=== PATIENT | female | born 1990 | race American Indian/Alaskan Native ===

== ENCOUNTER 2018-02-05 05:25 | Emergency (ER) | payer OTHER ==
[2018-02-05 05:48] LABS: Basophils % (Auto) 0.5 % (0.0-1.8); Eosinophils # (Auto) 0.1 K/mm3 (0.0-0.4); Eosinophils % (Auto) 1.8 % (0.0-4.3); Hematocrit 36.4 % (30.3-42.9); Hemoglobin 12.1 gm/dl (10.1-14.3); Lymphocytes # (Auto) 3.1 K/mm3 (1.2-5.4); Lymphocytes % (Auto) 40.7 % (13.4-35.0); Mean Corpuscular HGB Conc 33 % (30-34); Mean Corpuscular Hemoglobin 27 pg (28-32); Mean Corpuscular Volume 81 fl (79-97); Monocytes # (Auto) 0.5 K/mm3 (0.0-0.8); Monocytes % (Auto) 6.4 % (0.0-7.3); Platelet Count 320 K/mm3 (140-440); Red Blood Count 4.48 M/mm3 (3.65-5.03)
[2018-02-05 06:22] LABS: Bilirubin,Urine NEG (Negative); Blood,Urine MOD (Negative); Color,Urine Yellow (Yellow); Mucus,Urine FEW /HPF; Protein,Urine <15 mg/dL mg/dL (Negative); Urobilinogen,Urine < 2.0 mg/dL (<2.0); WBC,Urine < 1.0 /HPF (0.0-6.0)
[2018-02-05 06:32] VITALS: BP 119/69
--- NOTE | 2018-02-05 07:25 | Ultrasound Report ---
FINAL REPORT EXAM: US OB TRANSVAGINAL HISTORY: vaginal bleeding COMPARISONS: None. FINDINGS: Transvaginal 1st trimester ultrasound utilizing grayscale, color Doppler and M-mode technique Anteverted uterus. Gestational sac with chorion and possible pole. No cardiac activity is detected. Mean sac diameter is approximately 28 millimeters. Potential crown-rump length of 6 millimeters. No perigestational hemorrhage. Probable right ovarian corpus luteal cyst measures up to 2.3 cm. The ovaries are otherwise unremarkable and measure 4.5 x 1.8 x 2.1 cm on the right and 3.9 x 1.6 x 2.1 cm on the left. No significant free fluid in the pelvis. IMPRESSION: Gestational sac with chorion and possible 6 millimeter pole. No cardiac activity is detected. Failed 1st trimester / demise is most likely, although early and otherwise normal first-trimester is still possible. Close interval clinical and sonographic follow-up are suggested.
--- NOTE | 2018-02-05 07:27 | Ultrasound Report ---
FINAL REPORT EXAM: US OB < = 14 WEEKS FETUS HISTORY: veginal bleeding COMPARISONS: None. FINDINGS: Transabdominal 1st trimester ultrasound utilizing grayscale, color Doppler and M-mode technique Anteverted uterus. Gestational sac with chorion and possible pole. No cardiac activity is detected. Mean sac diameter is approximately 28 millimeters. Potential crown-rump length of 6 millimeters. No perigestational hemorrhage. Probable right ovarian corpus luteal cyst measures up to 2.3 cm. The ovaries are otherwise unremarkable and measure 4.5 x 1.8 x 2.1 cm on the right and 3.9 x 1.6 x 2.1 cm on the left. No significant free fluid in the pelvis. IMPRESSION: Gestational sac with chorion and possible 6 millimeter pole. No cardiac activity is detected. Failed 1st trimester / demise is most likely, although early and otherwise normal first-trimester is still possible. Close interval clinical and sonographic follow-up are suggested.
--- NOTE | 2018-02-05 08:07 | Emergency Department Report ---
HPI - General Chief Complaint: Vaginal Bleeding Time Seen by Provider: 02/05/18 07:48 - HPI HPI: Room 26 The patient is a 27-year-old female presenting with a chief complaint of vaginal spotting. The patient states she is approximately 10 weeks and this morning at 03:00 after having sexual intercourse she developed some vaginal spotting. Patient denied pain of any type. Patient denies fever or dysuria. The patient states she recently moved to [place] for her last ultrasound occurred in [place] when she was 7 weeks gestational age. No abnormalities were reported at that time Location: Genitourinary system Duration: [See above] Quality: Painless Severity: Mild Modifying factors: [see above] Context: [see above] Mode of transportation: [not driving] ED Past Medical Hx - Past Medical History Previous Medical History?: No - Surgical History Past Surgical History?: No - Family History Family history: no significant - Social History Smoking Status: Never Smoker Substance Use Type: None (denies illicit drug use) ED Review of Systems ROS: Stated complaint: VAGINAL BLEEDING Other details as noted in HPI Constitutional: no symptoms reported Eyes: denies: eye pain ENT: denies: throat pain Cardiovascular: denies: chest pain Gastrointestinal: denies: abdominal pain Genitourinary: abnormal menses Musculoskeletal: denies: back pain Neurological: denies: headache Physical Exam - Physical Exam Vital Signs: Vital Signs 02/05/18 02/05/18 02/05/18 05:22 05:27 06:05 Temperature 98.4 F 98.4 F Pulse Rate 95 H 95 H Respiratory 18 18 16 Rate Blood Pressure 143/83 143/83 Blood Pressure [Left] O2 Sat by Pulse 99 99 99 Oximetry 02/05/18 06:15 Temperature 98.3 F Pulse Rate 93 H Respiratory 16 Rate Blood Pressure Blood Pressure 119/69 [Left] O2 Sat by Pulse 100 Oximetry Physical Exam: GENERAL: The patient is well-developed well-nourished female lying on stretcher not appear to be in acute distress. [] HEENT: Normocephalic. Atraumatic. Extraocular motions are intact. Patient has moist mucous membranes. NECK: Supple. Trachea midline CHEST/LUNGS: Clear to auscultation. There is no respiratory distress noted. HEART/CARDIOVASCULAR: Regular. There is no tachycardia. There is no gallop rub or murmur. ABDOMEN: Abdomen is soft, nontender. Patient has normal bowel sounds. There is no abdominal distention. SKIN: There is no rash. There is no edema. There is no diaphoresis. NEURO: The patient is awake, alert, and oriented. The patient is cooperative. The patient has normal speech MUSCULOSKELETAL: There is no evidence of acute injury. ED Course Vital Signs 02/05/18 02/05/18 02/05/18 05:22 05:27 06:05 Temperature 98.4 F 98.4 F Pulse Rate 95 H 95 H Respiratory 18 18 16 Rate Blood Pressure 143/83 143/83 Blood Pressure [Left] O2 Sat by Pulse 99 99 99 Oximetry 02/05/18 06:15 Temperature 98.3 F Pulse Rate 93 H Respiratory 16 Rate Blood Pressure Blood Pressure 119/69 [Left] O2 Sat by Pulse 100 Oximetry ED Medical Decision Making - Lab Data Result diagrams: 02/05/18 05:36 Laboratory Tests 02/05/18 02/05/18 02/05/18 05:30 05:36 05:36 WBC 7.6 RBC 4.48 Hgb 12.1 Hct 36.4 MCV 81 MCH 27 L MCHC 33 RDW 15.0 Plt Count 320 Lymph % (Auto) 40.7 H [place] % (Auto) 6.4 Eos % (Auto) 1.8 Baso % (Auto) 0.5 Lymph # 3.1 [place] # 0.5 Eos # 0.1 Baso # 0.0 Seg Neutrophils % 50.6 Seg Neutrophils # 3.8 HCG, Quant 6962 H Urine Color Urine Turbidity Urine pH Ur Specific [place] Urine Protein Urine Glucose (UA) Urine Ketones Urine Blood Urine Nitrite Urine Bilirubin Urine Urobilinogen Ur Leukocyte Esterase Urine WBC (Auto) Urine RBC (Auto) U Epithel Cells (Auto) Urine Mucus Blood Type O POSITIVE Antibody Screen Negative 02/05/18 05:58 WBC RBC Hgb Hct MCV MCH MCHC RDW Plt Count Lymph % (Auto) [place] % (Auto) Eos % (Auto) Baso % (Auto) Lymph # [place] # Eos # Baso # Seg Neutrophils % Seg Neutrophils # HCG, Quant Urine Color Yellow Urine Turbidity Clear Urine pH 5.0 Ur Specific [place] 1.010 Urine Protein <15 mg/dl Urine Glucose (UA) Neg Urine Ketones Neg Urine Blood Mod Urine Nitrite Neg Urine Bilirubin Neg Urine Urobilinogen < 2.0 Ur Leukocyte Esterase Neg Urine WBC (Auto) < 1.0 Urine RBC (Auto) 2.0 U Epithel Cells (Auto) 1.0 Urine Mucus Few Blood Type Antibody Screen - Radiology Data Radiology results: report reviewed (pelvic ultrasound), image reviewed (pelvic ultrasound) [facility] [address] [place] [address] Ultrasound Report Signed Patient: SUSHIL OSEGUERA MR#: [id number] : 1990 Acct:[id number] Age/Sex: 27 / F ADM Date: 02/05/18 Loc: ED Attending Dr: Ordering Physician: MASOOD CHAVARRIA MD Date of Service: 02/05/18 Procedure(s): US OB transvaginal Accession Number(s): [id number] cc: ED MD DEON FINAL REPORT EXAM: US OB TRANSVAGINAL HISTORY: vaginal bleeding COMPARISONS: None. FINDINGS: Transvaginal 1st trimester ultrasound utilizing grayscale, color Doppler and M-mode technique Anteverted uterus. Gestational sac with chorion and possible pole. No cardiac activity is detected. Mean sac diameter is approximately 28 millimeters. Potential crown-rump length of 6 millimeters. No perigestational hemorrhage. Probable right ovarian corpus luteal cyst measures up to 2.3 cm. The ovaries are otherwise unremarkable and measure 4.5 x 1.8 x 2.1 cm on the right and 3.9 x 1.6 x 2.1 cm on the left. No significant free fluid in the pelvis. IMPRESSION: Gestational sac with chorion and possible 6 millimeter pole. No cardiac activity is detected. Failed 1st trimester / demise is most likely, although early and otherwise normal first-trimester is still possible. Close interval clinical and sonographic follow-up are suggested. Transcribed By: ROBERTO Dictated By: RAMON RIDER MD Electronically Authenticated By: RAMON RIDER MD Signed Date/Time: 02/05/18720 DD/ 0 TD/TT: 02/05/18720 - Medical Decision Making The pelvic ultrasound reveals no cardiac activity being detected. Radiologist believes a failed first trimester / demise is most likely although early and otherwise normal first trimester is still possible. Subsequently I will not give diagnosis of demise. Patient will be diagnosed with threatened until further evaluated by GENERAL STORE MANAGER. Patient advised to undergo bedrest and pelvic rest until cleared by an GENERAL STORE MANAGER Critical care attestation.: If time is entered above; I have spent that time in minutes in the direct care of this critically ill patient, excluding procedure time. ED Disposition Clinical Impression: Threatened Disposition: TO HOME OR SELFCARE Is pt being admited?: No Does the pt Need Aspirin: No Condition: Stable Instructions: Threatened Miscarriage (ED) Additional Instructions: Return to the emergency department immediately should you develop worsening symptoms, fever, inability to tolerate food or liquid or any other concerns. Referrals: your, GENERAL STORE MANAGER [Other] - 3-5 Days [facility] [Outside] - [facility] () Time of Disposition: 08:15
== END 2018-02-05 08:27 | disposition home or self-care (01) ==
LOC: ED 05:25
DX: O20.0 Threatened abortion (principal); Z3A.10 10 weeks gestation of pregnancy
CPT/HCPCS: 36415; 76801; 76817; 81001; 84702; 85025; 86850; 86900; 86901; 99284

== ENCOUNTER 2018-02-07 00:07 | Emergency (ER) | payer SELFPAY ==
[2018-02-07 00:52] LABS: Basophils % (Auto) 0.2 % (0.0-1.8); Eosinophils # (Auto) 0.2 K/mm3 (0.0-0.4); Eosinophils % (Auto) 1.9 % (0.0-4.3); Hematocrit 34.4 % (30.3-42.9); Hemoglobin 11.8 gm/dl (10.1-14.3); Lymphocytes # (Auto) 3.2 K/mm3 (1.2-5.4); Lymphocytes % (Auto) 35.7 % (13.4-35.0); Mean Corpuscular HGB Conc 34 % (30-34); Mean Corpuscular Hemoglobin 28 pg (28-32); Mean Corpuscular Volume 82 fl (79-97); Monocytes # (Auto) 0.5 K/mm3 (0.0-0.8); Monocytes % (Auto) 5.3 % (0.0-7.3); Platelet Count 310 K/mm3 (140-440); Red Cell Distribution Width 15.1 % (13.2-15.2)
[2018-02-07 00:58] LABS: Alanine Aminotransferase 11 units/L (7-56); Albumin 4.3 g/dL (3.9-5); BUN/Creatinine Ratio 16; Blood Urea Nitrogen 8 mg/dL (7-17); Calcium 9.5 mg/dL (8.4-10.2); Hemolysis Index 3
[2018-02-07 01:04] LABS: Bilirubin,Urine NEG (Negative); Blood,Urine MOD (Negative); Color,Urine Red (Yellow); Urobilinogen,Urine < 2.0 mg/dL (<2.0)
[2018-02-07 01:05] LABS: RBC,Urine > 182.0 /HPF (0.0-6.0)
--- NOTE | 2018-02-07 01:38 | Emergency Department Report ---
HPI - General Chief Complaint: Vaginal Bleeding Time Seen by Provider: 02/07/18 01:25 - [facility] HPI: Room 8 The patient is a 27-year-old female presenting with a chief complaint of vaginal bleeding. The patient was seen by myself 2 days ago for lower abdominal pain and vaginal bleeding and had a pelvic ultrasound performed which was concerning for demise. The patient states she scheduled an appointment with an CELLAR WORKER but has not yet followed up. Today the patient states she started having heavy vaginal bleeding passing large blood clots and again began having cramping in the lower abdomen. Patient does not recall seen tissue being passed Location: Pelvis Duration: One day Quality: Cramping Severity: Moderate Modifying factors: [see above] Context: [see above] Mode of transportation: [not driving] ED Past Medical Hx - Past Medical History Previous Medical History?: No - Surgical History Past Surgical History?: No - Family History Family history: no significant - Social History Smoking Status: Never Smoker Substance Use Type: Alcohol - Medications Home Medications: Home Medications Medication Instructions Recorded Confirmed Last Taken Type HYDROcodone/APAP 5-325 [Jonancy 1 - 2 each PO Q6HR PRN #14 tablet 02/07/18 Unknown Rx 5/325] Ibuprofen [Motrin 800 MG tab] 800 mg PO Q8HR PRN #20 tablet 02/07/18 Unknown Rx ED Review of Systems ROS: Stated complaint: VAGINAL BLEEDING Other details as noted in HPI Constitutional: no symptoms reported Eyes: denies: eye pain ENT: denies: throat pain Cardiovascular: denies: chest pain Gastrointestinal: abdominal pain Genitourinary: abnormal menses Musculoskeletal: denies: back pain Neurological: denies: headache Physical Exam - Physical Exam Vital Signs: Vital Signs 02/07/18 02/07/18 00:06 00:13 Temperature 97.9 F 97.9 F Pulse Rate 88 87 Respiratory 18 18 Rate Blood Pressure 124/69 124/69 O2 Sat by Pulse 100 100 Oximetry Physical Exam: GENERAL: The patient is well-developed well-nourished female sitting on stretcher not appearing to be in acute distress. [] HEENT: Normocephalic. Atraumatic. Extraocular motions are intact. Patient has moist mucous membranes. NECK: Supple. Trachea midline CHEST/LUNGS: Clear to auscultation. There is no respiratory distress noted. HEART/CARDIOVASCULAR: Regular. There is no tachycardia. There is no gallop rub or murmur. ABDOMEN: Abdomen is soft, with lower abdominal discomfort. Patient has normal bowel sounds. There is no abdominal distention. SKIN: There is no rash. There is no edema. There is no diaphoresis. NEURO: The patient is awake, alert, and oriented. The patient is cooperative. The patient has normal speech MUSCULOSKELETAL: There is no evidence of acute injury. PELVIC: Refused by patient ED Course Vital Signs 02/07/18 02/07/18 00:06 00:13 Temperature 97.9 F 97.9 F Pulse Rate 88 87 Respiratory 18 18 Rate Blood Pressure 124/69 124/69 O2 Sat by Pulse 100 100 Oximetry - Consultations Consultation #1: 02/07/18 03:16 CELLAR WORKER paged 02/07/18 03:[address] Yina Link- states the patient is hemodynamically stable she can have a D&C as an outpatient. Recommends patient apply for emergency Medicaid. Would not recommend Methergine or any other medication at this time ED Medical Decision Making - Lab Data Result diagrams: 02/07/18 00:23 02/07/18 00:23 Laboratory Tests 02/07/18 02/07/18 02/07/18 00:05 00:23 00:23 WBC 8.9 RBC 4.20 Hgb 11.8 Hct 34.4 MCV 82 MCH 28 MCHC 34 RDW 15.1 Plt Count 310 Lymph % (Auto) 35.7 H [place] % (Auto) 5.3 Eos % (Auto) 1.9 Baso % (Auto) 0.2 Lymph # 3.2 [place] # 0.5 Eos # 0.2 Baso # 0.0 Seg Neutrophils % 56.9 Seg Neutrophils # 5.1 Sodium 132 L Potassium 3.8 Chloride 96.3 L Carbon Dioxide 26 Anion Gap 14 BUN 8 Creatinine 0.5 L Estimated GFR > 60 BUN/Creatinine Ratio 16 Glucose 101 H Calcium 9.5 Total Bilirubin < 0.20 AST 13 ALT 11 Alkaline Phosphatase 68 Total Protein 7.4 Albumin 4.3 Albumin/Globulin Ratio 1.4 HCG, Qual HCG, Quant 4235 H Urine Color Urine Turbidity Urine pH Ur Specific [place] Urine Protein Urine Glucose (UA) Urine Ketones Urine Blood Urine Nitrite Urine Bilirubin Urine Urobilinogen Ur Leukocyte Esterase Urine WBC (Auto) Urine RBC (Auto) 02/07/18 02/07/18 00:23 Unknown WBC RBC Hgb Hct MCV MCH MCHC RDW Plt Count Lymph % (Auto) [place] % (Auto) Eos % (Auto) Baso % (Auto) Lymph # [place] # Eos # Baso # Seg Neutrophils % Seg Neutrophils # Sodium Potassium Chloride Carbon Dioxide Anion Gap BUN Creatinine Estimated GFR BUN/Creatinine Ratio Glucose Calcium Total Bilirubin AST ALT Alkaline Phosphatase Total Protein Albumin Albumin/Globulin Ratio HCG, Qual Positive HCG, Quant Urine Color Red Urine Turbidity Clear Urine pH 6.0 Ur Specific [place] 1.008 Urine Protein 30 mg/dl Urine Glucose (UA) Neg Urine Ketones Neg Urine Blood Mod Urine Nitrite Neg Urine Bilirubin Neg Urine Urobilinogen < 2.0 Ur Leukocyte Esterase Sm Urine WBC (Auto) 8.0 H Urine RBC (Auto) > 182.0 - Radiology Data Radiology results: report reviewed (pelvic ultrasound (discussed with radiologist)), image reviewed (pelvic ultrasound) [facility] [address] [place] [address] Ultrasound Report Signed Patient: SUSHIL OSEGUERA MR#: [id number] : 1990 Acct:[id number] Age/Sex: 27 / F ADM Date: 02/07/18 Loc: ED Attending Dr: Ordering Physician: MARIA A LAU MD Date of Service: 02/07/18 Procedure(s): US OB transvaginal Accession Number(s): [id number] cc: MARIA A LAU MD FINAL REPORT EXAM: US OB TRANSVAGINAL HISTORY: vaginal bleeding TECHNIQUE: Transvaginal imaging was obtained the pelvis including Doppler interrogation of the uterus. FINDINGS: The uterus is anteverted measures 9.7 cm x 5.3 cm x 6.1 cm. There is an intrauterine gestational sac in the lower uterine segment and upper cervix. Within the sac is a pole and yolk sac. The crown-rump length is 4.6 mm corresponding to a 6 week 2 day IUP. There is no demonstrable cardiac activity. There is no evidence of subchronic hemorrhage. The ovaries are appropriate size contour and echotexture. The right ovary measures 3.5 cm x 1.9 cm x 2.6 cm. The left ovary measures 2.3 cm x 1.4 cm x 2.4 cm. Free fluid is not seen. IMPRESSION: demise, 6 week 2 day IUP. The demise findings were discussed with Dr. Lau at 2:48 a.m. on 02/07/2018. Transcribed By: RB Dictated By: ELIEL FRENCH MD Electronically Authenticated By: ELIEL FRENCH MD Signed Date/Time: 02/07/18253 DD/ 3 TD/TT: 02/07/18253 - Medical Decision Making I discussed with the patient and significant other Dr. Link's recommendations. Patient advised to come to the hospital tomorrow to apply for emergency medical coverage. They verbalize understanding - Differential Diagnosis threatened , spontaneous , incomplete , demis Critical care attestation.: If time is entered above; I have spent that time in minutes in the direct care of this critically ill patient, excluding procedure time. ED Disposition Clinical Impression: demise Disposition: DC-01 TO HOME OR SELFCARE Is pt being admited?: No Does the pt Need Aspirin: No Condition: Stable Instructions: Intrauterine Demise (ED) Additional Instructions: Return to the emergency department immediately should you develop worsening symptoms, fever, inability to tolerate food or liquid or any other concerns. Prescriptions: HYDROcodone/APAP 5-325 [Jonancy 5/325] 1 - 2 each PO Q6HR PRN #14 tablet PRN Reason: Pain Ibuprofen [Motrin 800 MG tab] 800 mg PO Q8HR PRN #20 tablet PRN Reason: Pain, Moderate (4-6) Referrals: YINA LINK MD [Staff Physician] - [place] (Dr. Link is an CELLAR WORKER. Please follow up with her as soon as possible for further management) Time of Disposition: 03:52
--- NOTE | 2018-02-07 02:52 | Ultrasound Report ---
FINAL REPORT EXAM: US OB < = 14 WEEKS FETUS HISTORY: vaginal bleeding TECHNIQUE: Transabdominal imaging was obtained of the pelvis with Doppler interrogation of the uterus. FINDINGS: The uterus is anteverted measuring 9.7 cm x 5.3 cm x 6.1 cm. There is an intrauterine gestational sac in the lower uterine segment which contains a pole and yolk sac. The crown-rump length is 4.6 mm corresponding to a 6 week 2 day IUP. There is no demonstrated heart activity. A subchorionic hemorrhage is not seen. Free fluid is not identified. The ovaries are appropriate size contour and echotexture. The right ovary measures 3.5 cm x 1.9 cm x 2.6 cm. The left ovary measures 2.3 cm x 1.4 cm x 2.4 cm. IMPRESSION: demise, 6 week 2 day IUP.
--- NOTE | 2018-02-07 02:58 | Ultrasound Report ---
FINAL REPORT EXAM: US OB TRANSVAGINAL HISTORY: vaginal bleeding TECHNIQUE: Transvaginal imaging was obtained the pelvis including Doppler interrogation of the uterus. FINDINGS: The uterus is anteverted measures 9.7 cm x 5.3 cm x 6.1 cm. There is an intrauterine gestational sac in the lower uterine segment and upper cervix. Within the sac is a pole and yolk sac. The crown-rump length is 4.6 mm corresponding to a 6 week 2 day IUP. There is no demonstrable cardiac activity. There is no evidence of subchronic hemorrhage. The ovaries are appropriate size contour and echotexture. The right ovary measures 3.5 cm x 1.9 cm x 2.6 cm. The left ovary measures 2.3 cm x 1.4 cm x 2.4 cm. Free fluid is not seen. IMPRESSION: demise, 6 week 2 day IUP. The demise findings were discussed with Dr. Davison at 2:48 a.m. on 02/07/2018.
[2018-02-07] MEDS ORDERED: NORCO 5/325 PO ONE (03:49)
[2018-02-07 04:09] VITALS: BP 112/68
== END 2018-02-07 04:30 | disposition home or self-care (01) ==
LOC: ED 00:07
DX: O36.4XX0 Maternal care for intrauterine death, not applicable or unspecified (principal); Z3A.01 Less than 8 weeks gestation of pregnancy
CPT/HCPCS: 36415; 76801; 76817; 80053; 81001; 84702; 84703; 85025; 99284

== ENCOUNTER 2019-02-07 14:59 | Outpatient (CLI) | payer MEDICAID ==
[2019-02-07 15:33] VITALS: BP 117/59
[2019-02-07 16:42] LABS: Bacteria,Urine 1+ /HPF (Negative); Bilirubin,Urine NEG (Negative); Blood,Urine NEG (Negative); Color,Urine Yellow (Yellow); Mucus,Urine FEW /HPF; Protein,Urine <15 mg/dL mg/dL (Negative); Urobilinogen,Urine < 2.0 mg/dL (<2.0)
--- NOTE | 2019-02-07 19:30 | Ultrasound Report ---
ULTRASOUND BIOPHYSICAL PROFILE INDICATION / CLINICAL INFORMATION: Decreased movement. COMPARISON: None available. FINDINGS: BREATHING MOVEMENT = 2 GROSS BODY MOVEMENT = 2 TONE = 2 QUALITATIVE AMNIOTIC FLUID VOLUME = 2 TOTAL BIOPHYSICAL SCORE = 8/8 DEEPEST VERTICAL POCKET OF AMNIOTIC FLUID (cm) = 5.2 cm PRESENTATION: Cephalic. HEART RATE (beats per minute): 146 IMPRESSION: biophysical profile = 03/15 Signer Name: Mitch Casas MD Signed: 02/07/2019 7:25 PM Workstation Name: [id number]
== END 2019-02-07 18:00 | disposition home or self-care (01) ==
LOC: TRG 14:59
PROVIDERS: ATTEND Obstetrics & Gynecology
DX: O47.03 False labor before 37 completed weeks of gestation, third trimester (principal); Z3A.31 31 weeks gestation of pregnancy
CPT/HCPCS: 59025; 76819; 81001

== ENCOUNTER 2019-03-14 04:48 | Inpatient (IN) | payer MEDICAID ==
[2019-03-14] MEDS ORDERED: APRESOLINE ONE ×3 (06:23→11:43)
[2019-03-14] MEDS ORDERED: CELESTONE SOLUSPAN IM SCH (06:35)
[2019-03-14] MEDS ORDERED: CELESTONE SOLUSPAN IM ONE (06:35)
[2019-03-14] MEDS ORDERED: ZOFRAN IV PRN (06:39)
[2019-03-14] MEDS ORDERED: COLACE PO PRN (06:39)
[2019-03-14 06:55] LABS: Basophils # (Auto) 0.1 K/mm3 (0.0-0.1); Basophils % (Auto) 0.8 % (0.0-1.8); Eosinophils % (Auto) 0.6 % (0.0-4.3); Hematocrit 35.5 % (30.3-42.9); Hemoglobin 12.1 gm/dl (10.1-14.3); Lymphocytes # (Auto) 2.6 K/mm3 (1.2-5.4); Lymphocytes % (Auto) 30.6 % (13.4-35.0); Mean Corpuscular HGB Conc 34 % (30-34); Mean Corpuscular Volume 83 fl (79-97); Monocytes # (Auto) 0.6 K/mm3 (0.0-0.8); Monocytes % (Auto) 7.3 % (0.0-7.3); Red Blood Count 4.29 M/mm3 (3.65-5.03); Red Cell Distribution Width 16.2 % (13.2-15.2)
--- NOTE | 2019-03-14 06:59 | History and Physical Report ---
History of Present Illness Date of examination: 03/14/19 (pt presented to Triage with c/o severe HEART) History of present illness: EDC Confirmation: 04/08/2019 Gestational Age: 7 4/7 weeks Past History : 4 Term Births: 1 Premature Births: 0 Living Children: 1 Para: 1 Mult. Births: 0 Prev : 0 Prev. attempt? none Aborta: 2 Elect. Ab: 1 Spont. Ab: 1 Ectopics: 0 # 1 Delivery date: 07/11/2012 Weeks Gestation: 39 labor: no Delivery type: Anesthesia type: none Sex: Male weight: 6#12 # 2 Delivery date: 11/2013 Weeks Gestation: 5 Comments: EAB. D&C # 3 Delivery date: 10/2017 Weeks Gestation: 7 Comments: SAB. Exp. mgmt. Past Medical History: sickle cell trait. FOC has not yet been tested fibroid on breast-removed D&C 2013 Past Surgical History: fibroid from breast removed D&C 2013 wisdom tooth extraction Past Medical History Surgery (Non-benefits assistant): fibroid from breast removed D&C 2013 wisdom tooth extraction Abnormal PAP: negative WILLI Exposure: negative Infertility: negative Uterine Anomaly: negative Uterine Surgery (not C/S): negative Other Gynecologic Problems: negative Family Hx: mgm- HTN mother-HTN. 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 of genital herpes: no Partner hx. of genital herpes: no Rash, Viral, or Febrile illness since last LMP? no Varicella/Chicken Pox Status: Immunized TB Risk: no Genetic History Congenital Heart Defect: Mom: no Dad: no Gibson Disease: Mom: no Dad: no Thalassemia Mom: no Dad: no Neural Tube Defect Mom: no Dad: no Down's Syndrome Mom: no Dad: no Robert-Sachs Mom: no Dad: no Sickle Cell Disease/Trait Mom: no Dad: no Hemophilia Mom: no Dad: no Muscular Dystrophy Mom: no Dad: no Cystic Fibrosis Mom: no Dad: no [place] Chorea Mom: no Dad: no Mental Retardation Mom: no Dad: no Fragile X Mom: no Dad: no Other Genetic/Chromosomal Disorder Mom: no Dad: no Child w/other defect Mom: no Dad: no Enviromental Exposures Enviromental Exposures Reviewed Xray Exposure: no Medication, drug, or alcohol use since LMP: no Chemical/Other Exposure: no Exposure to Cat Liter: no Hx of Parvovirus (Fifth Disease): no Occupational Exposure to Children: teacher Comments: parvo to be drawn with IOB Active Medications (reviewed today): PLUS 27-1 MG ORAL TABLET ( VIT-FE FUMARATE-FA) 1 tablet po daily Current Allergies (reviewed today): No known allergies Past History - Obstetrical History Expected Date of Delivery: 04/08/19 Actual Gestation: 36 Week(s) 3 Day(s) : 4 Para: 1 Hx # Term Pregnancies: 1 Number of Pregnancies: 0 Spontaneous Abortions: 1 Induced : 1 Number of Living Children: 1 Medications and Allergies Allergies Allergy/AdvReac Type Severity Reaction Status Date / Time No Known Allergies Allergy Verified 02/07/19 15:14 Home Medications Medication Instructions Recorded Confirmed Last Taken Type Vit-Fe Fumar-FA [ 1 tab PO QDAY 02/07/19 03/14/19 03/13/19 08:00 History Vitamin] Active Meds: Active Medications Acetaminophen (Tylenol) 650 mg PO Q4H PRN PRN Reason: Pain MILD(1-3)/Fever >100.5/HEART Betamethasone Acet/Betameth SodPhos (Celestone Soluspan) 12 mg IM Q24H SUZETTE Stop: 03/15/19 06:36 Docusate Sodium (Colace) 100 mg PO Q12H PRN PRN Reason: Constipation Lactated Ringer's (Lactated Ringers) 1,000 mls @ 125 mls/hr IV DIRECT SUZETTE Multivitamins/Iron/Calcium ( Vitamin) 1 each PO QDAY SUZETTE Ondansetron HCl (Zofran) 4 mg IV Q6H PRN PRN Reason: Nausea And Vomiting - Vital Signs Vital signs: Vital Signs Pulse BP 79 187/112 03/14/19 05:05 03/14/19 05:05 Temp Pulse Resp BP Pulse Ox 81 167/84 03/14/19 06:40 03/14/19 06:40 - Physical Exam Breasts: Positive: deferred Cardiovascular: Regular rate, Normal S1, Normal S2 Lungs: Positive: Normal air movement Abdomen: Positive: normal appearance, soft, normal bowel sounds. Negative: distention, tenderness Genitourinary (Female): Positive: normal external genitalia Vulva: both: normal Vagina: Positive: normal moisture. Negative: discharge Cervix: Negative: lesion, discharge Uterus: Positive: normal size, normal contour Adnexa: both: normal Anus/Rectum: Positive: normal perianal skin, heme negative. Negative: rectal mass, hemorrhoids Extremities: Positive: edema Deep Tendon Reflex Grade: Normal but brisk +3 - Obstetrical FHR: category 1 Uterine Contraction Monitor Mode: External Cervical Dilatation: 0 Cervical Effacement Percentage: 30 station: -3 Uterine Contraction Pattern: Absent Uterine Tone Measurement Phase: Resting Results Result Diagrams: 03/14/19 06:10 All other labs normal. GBS Positive HBsAg Screen Negative Negative *1 RPR Non Reactive Non Reactive *2 Rubella Antibodies, IgG 25.50 index Immune >0.99 *3 Non-immune <0.90 Equivocal 0.90 - 0.99 Immune >0.99 ABO Grouping O *4 Rh Factor Positive *5 Please note: Prior records for this patient's ABO / Rh type are not available for additional verification. Antibody Screen Negative Negative *6 WBC 6.8 x10E3/uL 3.4-10.8 *7 RBC 4.19 x10E6/uL 3.77-5.28 *8 Hemoglobin [L] 10.9 g/dL 11.1-15.9 *9 Hematocrit 34.5 % 34.0-46.6 *10 MCV 82 fL 79-97 *11 MCH [L] 26.0 pg 26.6-33.0 *12 MCHC 31.6 g/dL 31.5-35.7 *13 RDW [H] 16.0 % 12.3-15.4 *14 Platelets 303 x10E3/uL 150-379 *15 Neutrophils 67 % Not Estab. *16 Lymphs 29 % Not Estab. *17 Monocytes 4 % Not Estab. *18 Eos 0 % Not Estab. *19 Basos 0 % Not Estab. *20 ! Immature Cells <No Reported Value> *21 Neutrophils (Absolute) 4.5 x10E3/uL 1.4-7.0 *22 Lymphs (Absolute) 1.9 x10E3/uL 0.7-3.1 *23 Monocytes(Absolute) 0.3 x10E3/uL 0.1-0.9 *24 Eos (Absolute) 0.0 x10E3/uL 0.0-0.4 *25 Baso (Absolute) 0.0 x10E3/uL 0.0-0.2 *26 ! Immature Granulocytes 0 % Not Estab. *27 ! Immature Grans (Abs) 0.0 x10E3/uL 0.0-0.1 *28 ! NRBC <No Reported Value> *29 Hematology Comments: <No Reported Value> *30 Tests: (2) Parvovirus B19, Human, IgG/IgM ([id number]) ! Parvovirus B19, IgG [H] 3.6 index 0.0-0.8 *31 Negative <0.9 Equivocal 0.9 - 1.1 Positive >1.1 ! Parvovirus B19, IgM 0.3 index 0.0-0.8 *32 Negative <0.9 Equivocal 0.9 - 1.1 Positive >1.1 Tests: (3) Panel 089041 ([id number]) HIV Screen 4th Generation wRfx Non Reactive Non Reactive *33 Tests: (4) Gest. Diabetes 1-Hr Screen ([id number]) ! Gestational Diabetes Screen 98 mg/dL 65-139 *34 According to ADA, a glucose threshold of >139 mg/dL after 50-gram load identifies approximately 80% of women with gestational diabetes mellitus, while the sensitivity is further increased to approximately 90% by a threshold of >129 mg/dL. Tests: (5) HCV Ab w/Rflx to Verification ([id number]) ! HCV Ab <0.1 s/co ratio 0.0-0.9 *35 Tests: (6) Comment: ([id number]) ! Comment: SPRCS *36 Non reactive HCV antibody screen is consistent with no HCV infection, unless recent infection is suspected or other evidence exists to indicate HCV infection. Tests: (7) Urine Culture, Routine ([id number]) Urine Culture, Routine Final report *37 Tests: (8) Result ([id number]) ! Result 1 MUG *38 Mixed urogenital meg 10,000-25,000 colony forming units per mL Assessment and Plan Spoke with gave order to mag and deliver - Patient Problems (1) 36 weeks gestation of Onset Date: ~03/14/19 Current Visit: Yes Status: Acute Plan to address problem: Pt arrived to Triage c/o the worse HEART ever. BP on admission 180/100 X [address]Royster Annoline given. BMZ X 1 dose given. Consult with [facility] ordered. (2) Elevated blood pressure affecting in third trimester, antepartum Onset Date: ~03/14/19 Current Visit: Yes Status: Acute Plan to address problem: 28yo @ 36w3d with PreE with severe features Pt admitted for hypertension mgt and induction Spoke with from [facility] her recommendation is to give MGSO4 and deliver. Pt made aware of POC and that operative intervention may be necessary if her BP cannot be decreased. Also explained that IOL may take several days. All questions addressed.
[2019-03-14] MEDS ORDERED: LACTATED RINGERS 1,000 ML IV SCH ×2 (07:00)
[2019-03-14 07:43] LABS: Color,Urine Yellow (Yellow)
[2019-03-14 07:44] LABS: Bilirubin,Urine Negative (Negative); Blood,Urine Negative (Negative); Protein,Urine >2000 mg dL mg/dL (Negative)
[2019-03-14 07:45] LABS: RBC,Urine < 1.0 /HPF (0.0-6.0)
[2019-03-14 07:46] LABS: Bacteria,Urine 1+ /HPF (Negative); Mucus,Urine Few /HPF
--- NOTE | 2019-03-14 08:23 | Event Note ---
Date: 03/14/19 Pt with dx of severe pre E at this time. Will proceed with IOL. BMZ times one has been given. Pt BPs initially not responsive to medications but currently trending downward. Will con't to monitor closely to maximize BP control during the induction process.
[2019-03-14] MEDS ORDERED: APRESOLINE IV ONE ×2 (08:30→12:11)
[2019-03-14] MEDS ORDERED: MAGNESIUM SULFATE 4GM/100ML 4 GM/100 ML BAG IV ONE (08:30)
--- NOTE | 2019-03-14 08:35 | Event Note ---
Date: 03/14/19 Patient resting in bed. She reports pain from HEART, 10/10 on pain scale. She denies visual disturbances, RUQ pain/epigastric pain, VB, LOF, or contractions. DWP lab results and reason for induction. Also discussed reason for magnesium and what to expect, danger signs to report. Patient denies any difficulty breathing, SOB, chest pain at current. Lung sounds clear, assessment WNL. DTRs 2+. Patient instructed to report any changes in s/s immediately.RN currently at bedside pushing ordered dose of labetalol. Instructed RN to place maynard catheter STANISLAV. Will continue to monitor BPs. Plan to start cervidil, orders in EMR, RN aware of plan.
[2019-03-14] MEDS: MAGNESIUM SULFATE 40GM/1000ML 40 GM/1,000 ML BAG IV SCH (08:48)
[2019-03-14] MEDS ORDERED: CERVIDIL VG ONE (09:00)
[2019-03-14] MEDS ORDERED: NORMODYNE IV ONE (09:00)
[2019-03-14 09:39] LABS: Alanine Aminotransferase 7 units/L (7-56)
[2019-03-14] MEDS: PRENATAL VITAMIN PO SCH (10:48)
[2019-03-14] MEDS ORDERED: NORMODYNE IV NR (11:23)
[2019-03-14 12:27] LABS: Platelet Count 88 K/mm3 (140-440)
--- NOTE | 2019-03-14 13:37 | Event Note ---
Date: 03/14/19 Dr. Shaver aware of platelet count. Order to redraw H&H and platelets now. Per MD, patient may have clear liquid diet at this time, will allow for crackers now at this time since cervidil not placed yet at this time.
[2019-03-14 14:13] LABS: Hematocrit 40.5 % (30.3-42.9); Hemoglobin 13.5 gm/dl (10.1-14.3)
[2019-03-14 14:21] LABS: Platelet Count TNR K/mm3 (140-440)
[2019-03-14] MEDS: TYLENOL PO PRN (14:52)
[2019-03-14] MEDS: NORMODYNE PO SCH ×2 (15:31→22:25)
[2019-03-14] MEDS ORDERED: APRESOLINE IV STA (20:43)
--- NOTE | 2019-03-15 02:04 | Event Note ---
Date: 03/15/19 Patient resting comfortably in bed, arouses easily to touch. Cervidil removed as scheduled. SVE- inner os closed/50/-3. Will allow pt to perform beronica care in bed and eat light meal. VSSAF. Pt reports HEART is better after tylenol. She denies any other complaints. Plan to repeat cervidil. Dr. Shaver aware of assessment and plan.
[2019-03-15] MEDS ORDERED: CERVIDIL VG ONE (03:00)
--- NOTE | 2019-03-15 08:40 | Progress Note ---
Assessment and Plan patient resting with eyes closed, no complaints. Second cervidil in place, due to be removed @ 1500 today. encouraged pt to rest and to notify nurse for any headaches, visual changes or chest pain. last mag level 4.8. b/p primarily 150's-160's/ 90's. Output adequate. - Patient Problems (1) Pre-eclampsia Current Visit: Yes Status: Acute Qualifiers: Trimester: third trimester Qualified Code(s): O14.93 - Unspecified pre- eclampsia, third trimester Plan to address problem: IOL in progress labetalol 200mg PO BID strict i&O nurses to call provider for b/p > 160/105 mag sulfate 2gm/hr Mag levels q6h (2) 36 weeks gestation of Onset Date: ~03/14/19 Current Visit: Yes Status: Acute Subjective - Subjective Date of service: 03/15/19 Principal diagnosis: IUP 36+4, IOL for pre-e Patient reports: movement normal, no new complaints, no loss of fluid, no vaginal bleeding, no contractions Objective - Vital Signs Vital Signs: Vital Signs - 12hr 03/14/19 03/14/19 03/14/19 20:51 21:06 21:35 Pulse Rate 97 H 98 H 98 H Blood Pressure 170/77 175/83 139/70 O2 Sat by Pulse Oximetry 03/14/19 03/14/19 03/14/19 21:50 22:05 22:20 Pulse Rate 100 H 99 H 103 H Blood Pressure 153/91 158/93 168/96 O2 Sat by Pulse Oximetry 03/14/19 03/14/19 03/14/19 22:35 22:50 23:05 Pulse Rate 103 H 105 H 100 H Blood Pressure 174/97 157/96 157/93 O2 Sat by Pulse Oximetry 03/14/19 03/14/19 03/14/19 23:20 23:35 23:50 Pulse Rate 110 H 111 H 101 H Blood Pressure 146/82 142/84 147/84 O2 Sat by Pulse Oximetry 03/15/19 03/15/19 03/15/19 00:05 00:35 01:06 Pulse Rate 103 H 112 H 111 H Blood Pressure 147/89 130/76 147/85 O2 Sat by Pulse Oximetry 03/15/19 03/15/19 03/15/19 01:20 01:35 01:50 Pulse Rate 101 H 98 H 110 H Blood Pressure 151/87 150/84 155/92 O2 Sat by Pulse Oximetry 03/15/19 03/15/19 03/15/19 02:00 02:05 02:07 Pulse Rate 106 H 103 H 111 H Blood Pressure 160/93 O2 Sat by Pulse 94 96 94 Oximetry 03/15/19 03/15/19 03/15/19 02:10 02:15 02:20 Pulse Rate 108 H 102 H 105 H Blood Pressure 157/85 O2 Sat by Pulse 90 100 100 Oximetry 03/15/19 03/15/19 03/15/19 02:25 02:35 02:50 Pulse Rate 103 H 99 H 99 H Blood Pressure 154/88 153/87 O2 Sat by Pulse 100 Oximetry 03/15/19 03/15/19 03/15/19 03:05 03:20 03:35 Pulse Rate 96 H 100 H 100 H Blood Pressure 147/80 151/94 158/97 O2 Sat by Pulse Oximetry 03/15/19 03/15/19 03/15/19 03:50 04:05 04:20 Pulse Rate 96 H 97 H 96 H Blood Pressure 154/87 155/93 155/97 O2 Sat by Pulse Oximetry 03/15/19 03/15/19 03/15/19 04:36 04:51 05:05 Pulse Rate 100 H 96 H 100 H Blood Pressure 143/91 168/98 153/95 O2 Sat by Pulse Oximetry 03/15/19 03/15/19 03/15/19 05:20 05:35 05:50 Pulse Rate 96 H 95 H 100 H Blood Pressure 159/93 154/85 156/89 O2 Sat by Pulse Oximetry 03/15/19 03/15/19 03/15/19 06:05 06:20 06:35 Pulse Rate 107 H 94 H 94 H Blood Pressure 175/103 164/92 167/88 O2 Sat by Pulse Oximetry 03/15/19 03/15/19 03/15/19 06:50 07:05 08:06 Pulse Rate 96 H 97 H 100 H Blood Pressure 168/82 169/82 163/92 O2 Sat by Pulse Oximetry 03/15/19 03/15/19 08:20 08:35 Pulse Rate 101 H 103 H Blood Pressure 168/92 168/98 O2 Sat by Pulse Oximetry - Exam Breasts: normal Cardiovascular: Regular rate Lungs: Clear to auscultation, Normal air movement Abdomen: Present: normal appearance Uterus: Present: normal FHR: auscultation normal, category 1 Uterine Contraction Monitor Mode: External Uterine Contraction Pattern: Irregular Uterine Tone Measurement Phase: Resting Deep Tendon Reflex Grade: Normal +2 - Labs Labs: Abnormal Labs 03/14/19 03/14/19 03/14/19 06:10 06:10 12:48 RDW 16.2 H Plt Count 88 L Creatinine 0.5 L Magnesium 3.50 H Lactate Dehydrogenase 254 H 03/14/19 03/14/19 03/15/19 15:39 19:54 00:17 RDW Plt Count Creatinine Magnesium 4.20 H 4.40 H 4.80 H Lactate Dehydrogenase Laboratory Results - last 24 hr 03/14/19 03/14/19 03/14/19 06:10 06:10 12:48 Hgb Hct Plt Count 88 L Creatinine 0.5 L Estimated GFR > 60 Uric Acid 4.0 Magnesium 3.50 H AST 15 ALT 7 Lactate Dehydrogenase 254 H 03/14/19 03/14/19 03/14/19 13:57 15:39 15:39 Hgb 13.5 Hct 40.5 Plt Count TNR 311 D Creatinine Estimated GFR Uric Acid Magnesium 4.20 H AST ALT Lactate Dehydrogenase 03/14/19 03/15/19 19:54 00:17 Hgb Hct Plt Count Creatinine Estimated GFR Uric Acid Magnesium 4.40 H 4.80 H AST ALT Lactate Dehydrogenase
[2019-03-15] MEDS ORDERED: APRESOLINE ONE (09:26)
[2019-03-15] MEDS ORDERED: APRESOLINE IV ONE (09:30)
[2019-03-15] MEDS: NORMODYNE PO SCH ×2 (09:57→22:04)
--- NOTE | 2019-03-15 10:24 | Event Note ---
Date: 03/15/19 received call from RN @ 0910 reporting elevated b/p 186/113, order given for one time dose of hydralizine 10mg x 1 and to recheck b/p in 10 minutes, if remains elevated RN to notify provider. b/p reviewed in chart with multiple elevations of diastolic >[address] Rodriguez informed. Will continue to monitor closely.
[2019-03-15] MEDS: PRENATAL VITAMIN PO SCH (10:30)
[2019-03-15] MEDS: TYLENOL PO PRN (12:34)
[2019-03-15] MEDS ORDERED: BICITRA PO ONE (12:55)
[2019-03-15] MEDS ORDERED: REGLAN IV ONE (12:55)
[2019-03-15] MEDS ORDERED: PEPCID IV ONE ×2 (12:55→16:27)
--- NOTE | 2019-03-15 12:55 | Progress Note ---
Assessment and Plan pt now c/o Guzman, Pt states she "feels bad" and would like to proceed with c/s. Cervidil removed, SVE without significant change. reviewed risks of c/s; injury to organs, loss of blood requiring transfusion, infection, increased pain during recovery, longer recovery, needing c/s for any future pregnancies. Patient states she wants tubal and signed consent @ [address] Rodriguez consulted and d/t worsening pre-e, will stop IOL and proceed with c/s delivery.Tubal consent on chart. - Patient Problems (1) Pre-eclampsia Current Visit: Yes Status: Acute Qualifiers: Trimester: third trimester Qualified Code(s): O14.93 - Unspecified pre- eclampsia, third trimester (2) 36 weeks gestation of Onset Date: ~03/14/19 Current Visit: Yes Status: Acute Subjective - Subjective Date of service: 03/15/19 Principal diagnosis: IUP 36+4, IOL for pre-e Patient reports: new complaints (GUZMAN), movement normal, other (GUZMAN), no loss of fluid, no vaginal bleeding, no contractions Objective - Vital Signs Vital Signs: Vital Signs - 12hr 03/15/19 03/15/19 03/15/19 01:06 01:20 01:35 Temperature Pulse Rate 111 H 101 H 98 H Respiratory Rate Blood Pressure 147/85 151/87 150/84 O2 Sat by Pulse Oximetry 03/15/19 03/15/19 03/15/19 01:50 02:00 02:05 Temperature Pulse Rate 110 H 106 H 103 H Respiratory Rate Blood Pressure 155/92 160/93 O2 Sat by Pulse 94 96 Oximetry 03/15/19 03/15/19 03/15/19 02:07 02:10 02:15 Temperature Pulse Rate 111 H 108 H 102 H Respiratory Rate Blood Pressure O2 Sat by Pulse 94 90 100 Oximetry 03/15/19 03/15/19 03/15/19 02:20 02:25 02:35 Temperature Pulse Rate 105 H 103 H 99 H Respiratory Rate Blood Pressure 157/85 154/88 O2 Sat by Pulse 100 100 Oximetry 03/15/19 03/15/19 03/15/19 02:50 03:05 03:20 Temperature Pulse Rate 99 H 96 H 100 H Respiratory Rate Blood Pressure 153/87 147/80 151/94 O2 Sat by Pulse Oximetry 03/15/19 03/15/19 03/15/19 03:35 03:50 04:05 Temperature Pulse Rate 100 H 96 H 97 H Respiratory Rate Blood Pressure 158/97 154/87 155/93 O2 Sat by Pulse Oximetry 03/15/19 03/15/19 03/15/19 04:20 04:36 04:51 Temperature Pulse Rate 96 H 100 H 96 H Respiratory Rate Blood Pressure 155/97 143/91 168/98 O2 Sat by Pulse Oximetry 03/15/19 03/15/19 03/15/19 05:05 05:20 05:35 Temperature Pulse Rate 100 H 96 H 95 H Respiratory Rate Blood Pressure 153/95 159/93 154/85 O2 Sat by Pulse Oximetry 03/15/19 03/15/19 03/15/19 05:50 06:05 06:20 Temperature Pulse Rate 100 H 107 H 94 H Respiratory Rate Blood Pressure 156/89 175/103 164/92 O2 Sat by Pulse Oximetry 03/15/19 03/15/19 03/15/19 06:35 06:50 07:05 Temperature Pulse Rate 94 H 96 H 97 H Respiratory Rate Blood Pressure 167/88 168/82 169/82 O2 Sat by Pulse Oximetry 03/15/19 03/15/19 03/15/19 08:06 08:20 08:35 Temperature Pulse Rate 100 H 101 H 103 H Respiratory Rate Blood Pressure 163/92 168/92 168/98 O2 Sat by Pulse Oximetry 03/15/19 03/15/19 03/15/19 08:40 08:45 08:50 Temperature Pulse Rate 100 H 77 101 H Respiratory Rate Blood Pressure O2 Sat by Pulse 100 92 100 Oximetry 03/15/19 03/15/19 03/15/19 08:51 08:55 08:56 Temperature Pulse Rate 100 H 100 H 102 H Respiratory Rate Blood Pressure 178/108 O2 Sat by Pulse 93 100 92 Oximetry 03/15/19 03/15/19 03/15/19 09:01 09:02 09:05 Temperature Pulse Rate 103 H 108 H Respiratory Rate Blood Pressure 166/105 O2 Sat by Pulse 0 L 96 Oximetry 03/15/19 03/15/19 03/15/19 09:07 09:09 09:13 Temperature 98.8 F Pulse Rate 98 H 99 H Respiratory 18 Rate Blood Pressure 186/113 O2 Sat by Pulse 63 L 98 Oximetry 03/15/19 03/15/19 03/15/19 09:14 09:15 09:20 Temperature Pulse Rate 108 H 99 H 105 H Respiratory Rate Blood Pressure O2 Sat by Pulse 97 91 100 Oximetry 03/15/19 03/15/19 03/15/19 09:21 09:24 09:25 Temperature Pulse Rate 106 H 103 H 101 H Respiratory Rate Blood Pressure 175/106 O2 Sat by Pulse 53 L 100 Oximetry 03/15/19 03/15/19 03/15/19 09:29 09:30 09:35 Temperature Pulse Rate 104 H 103 H 102 H Respiratory Rate Blood Pressure 186/113 O2 Sat by Pulse 89 91 76 L Oximetry 03/15/19 03/15/19 03/15/19 09:40 09:43 09:45 Temperature Pulse Rate 120 H 127 H 140 H Respiratory Rate Blood Pressure 179/108 O2 Sat by Pulse 100 100 Oximetry 03/15/19 03/15/19 03/15/19 09:49 09:50 09:55 Temperature Pulse Rate 137 H 136 H 125 H Respiratory Rate Blood Pressure O2 Sat by Pulse 90 100 100 Oximetry 03/15/19 03/15/19 03/15/19 09:57 10:00 10:05 Temperature Pulse Rate 127 H 129 H 121 H Respiratory Rate Blood Pressure 179/108 O2 Sat by Pulse 100 100 Oximetry 03/15/19 03/15/19 03/15/19 10:10 10:15 10:18 Temperature Pulse Rate 108 H 109 H 102 H Respiratory Rate Blood Pressure 182/113 O2 Sat by Pulse 100 99 Oximetry 03/15/19 03/15/19 03/15/19 10:20 10:25 10:30 Temperature Pulse Rate 110 H 102 H 108 H Respiratory Rate Blood Pressure 180/108 O2 Sat by Pulse 97 100 98 Oximetry 03/15/19 03/15/19 03/15/19 10:35 10:40 10:44 Temperature Pulse Rate 102 H 102 H 104 H Respiratory Rate Blood Pressure 174/102 O2 Sat by Pulse 99 100 Oximetry 03/15/19 03/15/19 03/15/19 10:45 10:50 10:55 Temperature Pulse Rate 104 H 101 H 102 H Respiratory Rate Blood Pressure O2 Sat by Pulse 99 97 96 Oximetry 03/15/19 03/15/19 03/15/19 11:00 11:05 11:06 Temperature Pulse Rate 99 H 99 H Respiratory Rate Blood Pressure O2 Sat by Pulse 97 100 6 L Oximetry 03/15/19 03/15/19 03/15/19 11:10 11:14 11:15 Temperature Pulse Rate 98 H 99 H 96 H Respiratory Rate Blood Pressure 140/85 O2 Sat by Pulse 99 98 Oximetry 03/15/19 03/15/19 03/15/19 11:20 11:25 11:30 Temperature Pulse Rate 96 H 96 H 96 H Respiratory Rate Blood Pressure O2 Sat by Pulse 98 98 99 Oximetry 03/15/19 03/15/19 03/15/19 11:35 11:40 11:45 Temperature Pulse Rate 100 H 96 H 106 H Respiratory Rate Blood Pressure O2 Sat by Pulse 99 99 98 Oximetry 03/15/19 03/15/19 03/15/19 11:50 11:55 12:00 Temperature Pulse Rate 99 H 99 H 98 H Respiratory Rate Blood Pressure O2 Sat by Pulse 99 98 99 Oximetry 03/15/19 03/15/19 03/15/19 12:05 12:07 12:10 Temperature Pulse Rate 102 H 97 H 104 H Respiratory Rate Blood Pressure 142/75 O2 Sat by Pulse 99 98 Oximetry 03/15/19 03/15/19 03/15/19 12:15 12:20 12:21 Temperature Pulse Rate 105 H 99 H 97 H Respiratory Rate Blood Pressure 165/86 O2 Sat by Pulse 100 98 Oximetry 03/15/19 03/15/19 03/15/19 12:25 12:30 12:35 Temperature Pulse Rate 100 H 102 H 99 H Respiratory Rate Blood Pressure O2 Sat by Pulse 99 99 99 Oximetry 03/15/19 12:40 Temperature Pulse Rate 102 H Respiratory Rate Blood Pressure O2 Sat by Pulse 99 Oximetry - Exam Breasts: normal Cardiovascular: Regular rate Lungs: Clear to auscultation, Normal air movement Abdomen: Present: normal appearance, soft Vulva: both: normal Uterus: Present: normal FHR: auscultation normal, category 1 (when able to trace) Uterine Contraction Monitor Mode: External Cervical Dilatation: 1 Cervical Effacement Percentage: 50 station: -1 Uterine Contraction Frequency (min): none noted Uterine Contraction Pattern: Absent Uterine Tone Measurement Phase: Resting - Labs Labs: Abnormal Labs 03/14/19 03/14/19 03/14/19 06:10 06:10 12:48 RDW 16.2 H Plt Count 88 L Creatinine 0.5 L Magnesium 3.50 H Lactate Dehydrogenase 254 H 03/14/19 03/14/19 03/15/19 15:39 19:54 00:17 RDW Plt Count Creatinine Magnesium 4.20 H 4.40 H 4.80 H Lactate Dehydrogenase 03/15/19 07:52 RDW Plt Count Creatinine Magnesium 4.80 H Lactate Dehydrogenase Laboratory Results - last 24 hr 03/14/19 03/14/19 03/14/19 12:48 13:57 15:39 Hgb 13.5 Hct 40.5 Plt Count TNR 311 D Magnesium 3.50 H 03/14/19 03/14/19 03/15/19 15:39 19:54 00:17 Hgb Hct Plt Count Magnesium 4.20 H 4.40 H 4.80 H 03/15/19 07:52 Hgb Hct Plt Count Magnesium 4.80 H
[2019-03-15] MEDS ORDERED: PITOCin/NS 20 UNIT/1000ML DRIP 20 UNITS/1,000 ML BAG IV SCH (13:00)
[2019-03-15] MEDS ORDERED: ceFAZolin 3 GM in NACL 0.9% 100 ML IV NR (13:00)
[2019-03-15] MEDS ORDERED: LACTATED RINGERS 1,000 ML IV SCH (13:00)
[2019-03-15 14:10] LABS: Basophils % (Auto) 0.2 % (0.0-1.8); Hemoglobin 13.5 gm/dl (10.1-14.3); Lymphocytes # (Auto) 1.5 K/mm3 (1.2-5.4); Lymphocytes % (Auto) 13.5 % (13.4-35.0); Mean Corpuscular HGB Conc 34 % (30-34); Mean Corpuscular Volume 83 fl (79-97); Monocytes # (Auto) 0.9 K/mm3 (0.0-0.8); Monocytes % (Auto) 8.4 % (0.0-7.3); Platelet Count 296 K/mm3 (140-440); Red Cell Distribution Width 16.8 % (13.2-15.2)
--- NOTE | 2019-03-15 14:35 | Event Note ---
Date: 03/15/19 Discussed procedure via telephone. Patient informed the risks of the surgery include bleeding possibly bleeding heavy enough to require blood transfusion, infection possible damage to bowel bladder ureter. All questions answered. Patient agrees to proceed. Patient desires permanent sterilization. She declined temporary contraceptives. She understands that this surgery would make her permanently sterile. She also understands the approximate 1% failure rate. The patient understands all the above and desires to proceed.
[2019-03-15] MEDS ORDERED: NARCAN 0.4 MG/1 ML IV PRN (16:23)
[2019-03-15] MEDS ORDERED: DILAUDID IV PRN ×2 (16:23)
[2019-03-15] MEDS ORDERED: ZOFRAN IV PRN (16:23)
[2019-03-15] MEDS ORDERED: BENADRYL IV PRN (16:23)
[2019-03-15] MEDS ORDERED: BICITRA ONE (16:26)
[2019-03-15] MEDS ORDERED: REGLAN ONE (16:27)
[2019-03-15] MEDS ORDERED: ANCEF/STERILE WATER 2 GM/20 ML 2 GM/20 ML SYRINGE IV ONE (16:27)
--- NOTE | 2019-03-15 16:28 | Anesthesia Consultation ---
Anesthesia Consult and Med Hx Date of service: 03/15/19 - Airway Anesthetic Teeth Evaluation: Good ROM Head & Neck: Adequate Mental/Hyoid Distance: Adequate Mallampati Class: Class III Intubation Access Assessment: Probably Good - Pulmonary Exam CTA: Yes - Cardiac Exam Cardiac Exam: RRR - Pre-Operative Health Status ASA Pre-Surgery Classification: ASA3 Proposed Anesthetic Plan: Spinal - Pulmonary Hx Smoking: No Hx Asthma: No Hx Respiratory Symptoms: No SOB: No COPD: No Home Oxygen Therapy: No Hx Pneumonia: No Hx Sleep Apnea: No - Cardiovascular System Hx Hypertension: Yes (PIH ) Hx Coronary Artery Disease: No Hx Heart Attack/AMI: No Hx Angina: No Hx Percutaneous Transluminal Coronary Angioplasty (PTCA): No Hx Cardia Arrhythmia: No Hx Pacemaker: No Hx Internal Defibrillator: No Hx Valvular Heart Disease: No Hx Heart Murmur: No Hx Peripheral Vascular Disease: No - Central Nervous System Hx Neuromuscular Disorder: No Hx Seizures: No CVA: No Hx Back Pain: Yes Hx Psychiatric Problems: No - Gastrointestinal Hx Ulcer: No Hx Gastroesophageal Reflux Disease: Yes - Endocrine Hx Renal Disease: No Hx End Stage Renal Disease: No Hx Cirrhosis: No Hx Liver Disease: No Hx Insulin Dependent Diabetes: No Hx Non-Insulin Dependent Diabetes: No Hx Hypothyroidism: No Hx Hyperthyroidism: No - Hematic Hx Anemia: No Hx Sickle Cell Disease: No - Other Systems Hx Alcohol Use: No Hx Substance Use: No Hx Cancer: No Hx Obesity: Yes (BMI 47.8)
--- NOTE | 2019-03-15 16:29 | Anesthesia Day of Surgery ---
Anesthesia Day of Surgery - Day of Surgery Patient Examined: Yes Patient H&P Reviewed: Yes Patient is NPO: Yes Beta Blockers: No Cardiac Clearance: No Pulmonary Clearance: No Santana's Test: N/A
[2019-03-15] MEDS ORDERED: SODIUM CHLORIDE FLUSH SYRINGE 10 ML IV NR (17:00)
[2019-03-15] MEDS ORDERED: WATER FOR IRRIG STERILE IR ONE (20:00)
[2019-03-15] MEDS ORDERED: NACL 0.9% IR ONE (20:00)
[2019-03-15] MEDS ORDERED: ZOFRAN ONE (20:22)
--- NOTE | 2019-03-15 21:24 | Post Anesthesia Evaluation ---
- Post Anesthesia Evaluation Patient Participated: Yes Airway Patent: Yes Stable Respiratory Function: Yes Nausea/Vomiting: No Temp > 96.8F: Yes Pain Manageable: Yes Adequeate Hydration: Yes Anesthesia Complications: No Block Receding Appropriately: Yes Patient on Ventilator: No
--- NOTE | 2019-03-15 21:27 | Operative Report ---
Operative Report Operative Report: Date of procedure: 03/15/2019 Pre-operative diagnosis: Intrauterine at 36 weeks with severe preeclam psia. Failed induction remote from vaginal delivery patient desires operative delivery and permanent sterilization. Body mass index of 47.8 kg/m Post-operative diagnosis: Same Procedure name(s): Primary low transverse section with bilateral salpingectomy Surgeon: Juanjose Rodriguez MD Product Assurance Engineer: Anesthesia: Spinal EBL: 700 mL Complications: None Findings: Patient with normal uterus tubes and ovaries bilaterally. Male infant. Weight 4 lbs. 11 oz. Apgars 8 at 1 minute and 9 at 5 minutes Specimen(s): Right and left fallopian tubes Procedure: The patient was brought to the operating room. A spinal was placed without any complications. She was then placed in left lateral tilt. Prepped and draped in the usual sterile manner. After testing for adequate anesthesia level, a Pfannenstiel incision was made. This incision was taken down to the fascia. The fascia was then nicked in the midline. This incision was extended out laterally with Flores scissors. The fascia was then sharply and bluntly from the underlying rectus muscles. The rectus muscles were bluntly and sharply . The peritoneum was then entered with the sole leather cutting machine operator's fingers. This incision was spread vertically with care not to damage the bladder below. The [place] self-retaining tractor was then placed without any difficulty. The bladder flap was then formed sharply and bluntly with Metzenbaum scissors. A transverse incision was made in lower uterine segment. This incision was extended laterally with the operators fingers. The amniotic sac was then entered bluntly with the sole leather cutting machine operator's fingers. The infant was delivered from the vertex position. Bulb suction on the mother's abdomen. Cord was double clamped and cut. The was then passed to the nursery personnel who were in attendance. The above scores were given by the nursery personnel. The placenta was then bluntly removed. The uterus was then externalized and wiped clean the remaining products. The uterine incision was closed in layers. The first incision was closed in a locking manner using 0 Vicryl. This was followed by imbricating stitch also with 0 Vicryl. Attention was then switched to the patient's fallopian tubes. Each fallopian tube was identified by its fimbriated end. Starting at the fimbriated end of each tube was grasped with the Jarreau clamp. The meso salpinx was then cauterized with the Bovie until region approximately 2 cm from the cornua. At this point came across the fallopian tubes. Each stump was found to be hemostatic and cauterized with the Bovie. Patient did have some oozing of the mesosalpinx bilaterally there were repaired with [id number] sutures with 3-0 Vicryl with good hemostasis. Attention was then switched back to the uterine closure. This closure was hemostatic. The bladder flap was copiously irrigated and found to be hemostatic after additional [id number] sutures. The pelvis was copiously irrigated and found to be hem ostatic. The uterus was then placed back to the patient's abdomen. Surgery was single was placed along the uterine incision. The retractors were removed. The rectus muscles were inspected and found to be hemostatic. The fascia was then closed in a running manner using 0 Vicryl. This incision was hemostatic irrigation Bovie. The skin was reapproximated with 4-0 Vicryl subcuticularly. The patient tolerated procedure well. Her urine was clear. The infant was admitted to the well baby nursery. The patient was accompanied to recovery room in good condition. Instrument count correct 3
[2019-03-15] MEDS: MAGNESIUM SULFATE 40GM/1000ML 40 GM/1,000 ML BAG IV SCH (22:07)
[2019-03-16] MEDS ORDERED: D5LR 1,000 ML IV SCH (01:25)
[2019-03-16] MEDS ORDERED: MAGNESIUM SULFATE 40GM/1000ML 40 GM/1,000 ML BAG IV SCH (01:25)
[2019-03-16] MEDS ORDERED: SODIUM CHLORIDE FLUSH SYRINGE 10 ML IV NR (01:25)
[2019-03-16] MEDS ORDERED: NARCAN 0.4 MG/1 ML IV PRN (01:25)
[2019-03-16] MEDS ORDERED: ZOFRAN IV PRN (01:25)
[2019-03-16] MEDS ORDERED: TYLENOL PO PRN (01:25)
[2019-03-16] MEDS ORDERED: TUCKS PAD TP PRN (01:25)
[2019-03-16] MEDS ORDERED: MYLICON PO PRN (01:25)
[2019-03-16] MEDS ORDERED: PITOCin/NS 20 UNIT/1000ML DRIP 20 UNITS/1,000 ML BAG IV SCH (01:25)
[2019-03-16] MEDS ORDERED: TORADOL IV PRN (01:25)
[2019-03-16] MEDS ORDERED: LANSINOH TP PRN (01:25)
[2019-03-16] MEDS ORDERED: IBUPROFEN PO PRN (01:25)
[2019-03-16 02:08] LABS: Hematocrit 34.2 % (30.3-42.9); Hemoglobin 11.8 gm/dl (10.1-14.3)
[2019-03-16] MEDS ORDERED: ANCEF/NS 1 GM/50 ML 1 GM/50 ML BAG IV SCH (05:00)
[2019-03-16] MEDS: NORCO 5/325 PO PRN (05:25)
[2019-03-16] MEDS: NORMODYNE PO SCH ×3 (08:10→23:41)
[2019-03-16] MEDS ORDERED: HEMABATE IM ONE (08:20)
[2019-03-16] MEDS ORDERED: CYTOTEC PR ONE ×2 (08:30→09:00)
[2019-03-16] MEDS ORDERED: REGLAN ONE (08:33)
[2019-03-16] MEDS: TORADOL IV SCH ×2 (08:45→16:40)
[2019-03-16] MEDS ORDERED: LACTATED RINGERS 1,000 ML ONE (08:56)
[2019-03-16] MEDS ORDERED: MORPHINE IV ONE (09:00)
[2019-03-16] MEDS ORDERED: LOMOTIL PO PRN (09:00)
--- NOTE | 2019-03-16 09:02 | Progress Note ---
Assessment and Plan - Patient Problems (1) delivery delivered Current Visit: Yes Status: Acute (2) Sterilization Current Visit: Yes Status: Acute (3) BMI 45.0-49.9, adult Current Visit: Yes Status: Acute (4) Pre-eclampsia Current Visit: Yes Status: Acute Qualifiers: Trimester: third trimester Qualified Code(s): O14.93 - Unspecified pre- eclampsia, third trimester Plan to address problem: BP's stable thru our night, elevated during attempt to remove clots and uterine massage. Given AM labetalol dose now. Will allow her to rest and repeat BP 10minutes, Hydralazine 10mg IV if bp's remain elevated. (5) bleeding Current Visit: Yes Status: Acute Plan to address problem: Ynes CNPrabha manually removed clots from vagina, she placed 1000mcg cytotec MT. On my exam, no clots in vagina, however probable clot in cervix/lower uterine segment. No active bleeding with attempt to massage uterus ( very uncomfortable for patient, she was not able to tolerate procedure well in spite of MSO4 2mg IV). Patient given Pitocin bolus from bag hanging, Hemabate 250mcg IM. Observe closely for now Subjective - Subjective Date of service: 03/16/19 Principal diagnosis: POD #1 C/S with BTL, preeclampsia Objective - Vital Signs Latest vital signs: Vital Signs Temp Pulse Resp BP BP Pulse Ox 03/16/19 08:55 97 H 187/104 100 03/16/19 08:50 96 H 99 03/16/19 08:46 96 H 193/102 03/16/19 08:45 98 H 99 03/16/19 08:40 97 H 98 03/16/19 08:35 103 H 98 03/16/19 08:33 101 H 194/116 03/16/19 08:06 114 H 100 03/16/19 08:04 98.4 F 03/16/19 08:01 105 H 100 03/16/19 07:56 99 H 100 03/16/19 07:55 94 H 181/102 03/16/19 07:51 99 H 100 03/16/19 07:46 104 H 100 03/16/19 07:41 100 H 100 03/16/19 07:37 55 L 60 L 03/16/19 07:36 93 H 100 03/16/19 07:32 89 179/97 03/16/19 07:31 100 H 98 03/16/19 07:26 104 H 100 03/16/19 07:25 91 H 179/92 03/16/19 07:21 86 98 03/16/19 07:16 84 98 03/16/19 07:11 85 98 03/16/19 07:06 87 98 03/16/19 07:01 85 97 03/16/19 06:56 87 97 03/16/19 06:55 90 176/96 03/16/19 06:53 86 93 03/16/19 06:51 86 97 03/16/19 06:46 88 96 03/16/19 06:44 90 94 03/16/19 06:41 92 H 92 03/16/19 06:38 90 94 03/16/19 06:36 92 H 95 03/16/19 06:32 86 94 03/16/19 06:31 90 95 03/16/19 06:27 88 94 03/16/19 06:26 89 95 03/16/19 06:25 91 H 18 146/81 03/16/19 06:22 85 94 03/16/19 06:21 89 94 03/16/19 06:17 86 94 03/16/19 06:16 86 95 03/16/19 06:11 86 94 03/16/19 06:06 98 H 92 03/16/19 06:01 93 H 98 03/16/19 05:56 88 97 03/16/19 05:55 86 156/95 94 03/16/19 05:51 86 99 03/16/19 05:46 88 99 03/16/19 05:41 98 H 99 03/16/19 05:36 89 98 03/16/19 05:31 88 98 03/16/19 05:27 90 162/94 03/16/19 05:26 93 H 100 03/16/19 05:25 87 18 169/103 03/16/19 05:22 93 H 94 03/16/19 05:20 89 93 03/16/19 05:15 90 94 03/16/19 05:10 99 H 93 03/16/19 05:06 101 H 0 L 03/16/19 05:01 88 100 03/16/19 04:56 91 H 100 03/16/19 04:55 90 151/96 0 L 03/16/19 04:51 90 100 03/16/19 04:50 89 0 L 03/16/19 04:46 92 H 100 03/16/19 04:41 90 100 03/16/19 04:36 91 H 100 03/16/19 04:31 92 H 100 03/16/19 04:26 94 H 100 03/16/19 04:24 91 H 144/93 03/16/19 04:21 94 H 100 03/16/19 04:16 100 H 100 03/16/19 04:11 93 H 100 03/16/19 04:06 92 H 100 03/16/19 04:01 92 H 100 03/16/19 03:56 95 H 100 03/16/19 03:54 89 138/82 03/16/19 03:51 95 H 100 03/16/19 03:46 95 H 100 03/16/19 03:41 94 H 100 03/16/19 03:36 92 H 100 03/16/19 03:31 94 H 100 03/16/19 03:26 92 H 100 03/16/19 03:24 93 H 135/80 03/16/19 03:20 91 H 100 03/16/19 03:15 90 100 03/16/19 03:09 92 H 100 03/16/19 03:04 97 H 98 03/16/19 02:59 93 H 100 03/16/19 02:54 95 H 137/84 98 03/16/19 02:38 110 H 85 03/16/19 02:24 98 H 141/86 03/16/19 02:10 18 03/16/19 01:54 101 H 139/91 03/16/19 01:51 101 H 99 03/16/19 01:48 99 H 85 03/16/19 01:45 98 H 94 03/16/19 01:43 100 H 87 03/16/19 01:40 98 H 18 91 03/16/19 01:38 54 L 58 L 03/16/19 01:35 100 H 97 03/16/19 01:30 95 H 98 03/16/19 01:29 103 H 91 03/16/19 01:25 98 H 133/99 98 03/16/19 01:20 98 H 99 03/16/19 01:15 97 H 100 03/16/19 01:10 100 H 99 03/16/19 01:05 99 H 100 03/16/19 01:02 105 H 94 03/16/19 01:00 91 H 100 03/16/19 00:55 90 98 03/16/19 00:54 90 147/94 03/16/19 00:50 91 H 100 03/16/19 00:45 89 100 03/16/19 00:40 92 H 100 03/16/19 00:35 95 H 66 L 03/16/19 00:30 86 100 03/16/19 00:25 78 98 03/16/19 00:24 75 143/89 03/16/19 00:20 81 98 03/16/19 00:15 83 99 03/16/19 00:10 85 99 03/16/19 00:05 89 99 03/16/19 00:00 92 H 100 03/15/19 23:55 91 H 97 03/15/19 23:54 82 134/84 03/15/19 23:50 83 99 03/15/19 23:45 86 99 03/15/19 23:40 85 100 03/15/19 23:35 82 99 03/15/19 23:31 97.9 F 80 18 135/86 97 03/15/19 23:30 85 96 03/15/19 23:25 85 100 03/15/19 23:24 82 91 03/15/19 23:23 81 135/86 03/15/19 22:30 85 14 106/60 100 03/15/19 22:15 79 13 95/46 100 03/15/19 22:04 80 105/35 03/15/19 22:01 89 18 105/34 100 03/15/19 21:45 83 15 112/43 98 03/15/19 21:30 79 12 92/32 100 03/15/19 21:25 80 16 92/39 100 03/15/19 21:21 97.7 F 75 11 L 88/35 100 03/15/19 19:15 94 H 191/103 03/15/19 18:59 89 187/112 03/15/19 18:44 90 167/83 03/15/19 18:29 91 H 185/112 03/15/19 18:00 90 191/106 08/08/19 17:57 92 H 172/102 03/15/19 17:42 94 H 164/95 03/15/19 17:00 98.9 F 18 03/15/19 16:23 94 H 189/103 03/15/19 16:21 97 H 182/119 03/15/19 15:21 101 H 180/110 03/15/19 14:21 99 H 143/73 03/15/19 13:50 95 H 100 03/15/19 13:45 96 H 99 03/15/19 13:40 98 H 99 03/15/19 13:35 101 H 99 03/15/19 13:30 97 H 100 03/15/19 13:25 97 H 100 03/15/19 13:21 95 H 169/91 03/15/19 13:20 98 H 100 03/15/19 13:15 105 H 100 03/15/19 13:10 98 H 94 03/15/19 13:05 98 H 100 03/15/19 13:00 100 H 100 03/15/19 12:55 99 H 100 03/15/19 12:50 98 H 99 03/15/19 12:45 110 H 99 03/15/19 12:40 102 H 99 03/15/19 12:35 99 H 99 03/15/19 12:30 102 H 99 03/15/19 12:25 100 H 99 03/15/19 12:24 98.2 F 18 03/15/19 12:21 97 H 165/86 03/15/19 12:20 99 H 98 03/15/19 12:15 105 H 100 03/15/19 12:10 104 H 98 03/15/19 12:07 97 H 142/75 03/15/19 12:05 102 H 99 03/15/19 12:00 98 H 99 03/15/19 11:55 99 H 98 03/15/19 11:50 99 H 99 03/15/19 11:45 106 H 98 03/15/19 11:40 96 H 99 03/15/19 11:35 100 H 99 03/15/19 11:30 96 H 99 03/15/19 11:25 96 H 98 03/15/19 11:20 96 H 98 03/15/19 11:15 96 H 98 03/15/19 11:14 99 H 140/85 03/15/19 11:10 98 H 99 03/15/19 11:06 6 L 03/15/19 11:05 99 H 100 03/15/19 11:00 99 H 97 03/15/19 10:55 102 H 96 03/15/19 10:50 101 H 97 03/15/19 10:45 104 H 99 03/15/19 10:44 104 H 174/102 03/15/19 10:40 102 H 100 03/15/19 10:35 102 H 99 03/15/19 10:30 108 H 180/108 98 03/15/19 10:25 102 H 100 03/15/19 10:20 110 H 97 03/15/19 10:18 102 H 182/113 03/15/19 10:15 109 H 99 03/15/19 10:10 108 H 100 03/15/19 10:05 121 H 100 03/15/19 10:00 129 H 100 03/15/19 09:57 127 H 179/108 03/15/19 09:55 125 H 100 03/15/19 09:50 136 H 100 03/15/19 09:49 137 H 90 03/15/19 09:45 140 H 100 03/15/19 09:43 127 H 179/108 03/15/19 09:40 120 H 100 03/15/19 09:35 102 H 76 L 03/15/19 09:30 103 H 186/113 91 03/15/19 09:29 104 H 89 03/15/19 09:25 101 H 100 03/15/19 09:24 103 H 53 L 03/15/19 09:21 106 H 175/106 03/15/19 09:20 105 H 100 03/15/19 09:15 99 H 91 03/15/19 09:14 108 H 97 03/15/19 09:13 99 H 186/113 03/15/19 09:09 98 H 98 03/15/19 09:07 98.8 F 18 63 L 03/15/19 09:05 108 H 166/105 03/15/19 09:02 96 03/15/19 09:01 103 H 0 L Intake and Output 03/15/19 03/16/19 03/16/19 22:59 06:59 14:59 Intake Total 1700 Output Total 200 320 200 Balance 1500 -320 -200 Intake: IV 1700 Output: Urine 200 320 200 Indwelling 100 Indwelling Catheter 320 200 Other: Total, Output Amount 320 200 Estimated Blood Loss 700 - Exam Narrative Exam: Patient resting on her back with and RN's present. Report from RN: increased vaginal bleeding, RN massaging fundus with moderated clots expressed. Breasts: Present: deferred Cardiovascular: Present: Regular rate Lungs: Present: Clear to auscultation, Normal air movement Abdomen: Present: soft, normal bowel sounds, other (obese) Vulva: both: normal Uterus: Present: other (unable to palpate well d/t obesity) Extremities: Present: normal, edema (trace). Absent: tenderness Incision: Present: normal, dry, intact - Labs Labs: Abnormal lab results 03/15/19 03/15/19 03/15/19 Range/Units 13:36 13:36 17:40 RDW 16.8 H (13.2-15.2) % Christian % (Auto) 8.4 H (0.0-7.3) % Christian # 0.9 H (0.0-0.8) K/mm3 Seg Neutrophils % 77.9 H (40.0-70.0) % Seg Neutrophils # 8.5 H (1.8-7.7) K/mm3 Magnesium 5.50 H 5.40 H (1.7-2.3) mg/dL 03/16/19 03/16/19 Range/Units 01:34 05:57 RDW (13.2-15.2) % Christian % (Auto) (0.0-7.3) % Christian # (0.0-0.8) K/mm3 Seg Neutrophils % (40.0-70.0) % Seg Neutrophils # (1.8-7.7) K/mm3 Magnesium 4.30 H 4.50 H (1.7-2.3) mg/dL
[2019-03-16] MEDS ORDERED: APRESOLINE IV PRN (09:30)
[2019-03-16] MEDS: PRENATAL VITAMIN PO SCH (09:53)
[2019-03-16] MEDS ORDERED: LACTATED RINGERS 1,000 ML IV SCH ×2 (10:00→13:00)
[2019-03-16 13:00] LABS: Hematocrit 33.6 % (30.3-42.9); Hemoglobin 11.6 gm/dl (10.1-14.3)
[2019-03-16] MEDS ORDERED: SUBLIMAZE IV ONE (13:45)
[2019-03-16] MEDS ORDERED: SUBLIMAZE ONE (13:57)
[2019-03-16] MEDS ORDERED: NORMODYNE IV NR (20:47)
[2019-03-16] MEDS ORDERED: APRESOLINE IV ONE (21:00)
[2019-03-16] MEDS ORDERED: MILK OF MAGNESIA PO PRN (22:00)
[2019-03-17] MEDS: TORADOL IV SCH (00:20)
[2019-03-17] MEDS ORDERED: TORADOL IV PRN (01:00)
[2019-03-17] MEDS: TYLENOL PO SCH ×4 (06:21→23:28)
[2019-03-17] MEDS: NORMODYNE PO SCH ×3 (08:16→20:08)
--- NOTE | 2019-03-17 09:59 | Progress Note ---
Assessment and Plan - Patient Problems (1) delivery delivered Status: Acute Plan to address problem: Postoperative day #1. Patient without nausea vomiting. Patient tolerating advancing diet well Patient without fever. Will ambulate in halls. We will continue routine postoperative care. is doing well. Will continue routine post operative care. Patient's postoperative hematocrit is acceptable (2) Pre-eclampsia Status: Acute Qualifiers: Trimester: third trimester Qualified Code(s): O14.93 - Unspecified pre- eclampsia, third trimester Plan to address problem: Blood pressures improving will continue to watch and adjust medication if necessary Subjective - Subjective Date of service: 03/17/19 Principal diagnosis: POD #2 C/S with BTL, preeclampsia Patient reports: appetite normal, voiding normally, pain well controlled, flatus [place]: doing well Objective - Vital Signs Latest vital signs: Vital Signs Temp Pulse Resp BP BP Pulse Ox 03/17/19 08:16 100 H 150/90 03/17/19 08:10 98.6 F 103 H 20 150/90 97 03/17/19 06:42 18 03/17/19 06:21 18 03/17/19 02:16 97.9 F 101 H 20 131/79 96 03/17/19 01:25 97.9 F 90 18 135/86 94 03/17/19 01:22 104 H 149/96 93 03/17/19 00:59 117 H 135/88 03/17/19 00:18 106 H 135/89 03/17/19 00:08 104 H 127/89 03/16/19 23:58 104 H 131/91 03/16/19 23:46 109 H 149/104 03/16/19 23:41 111 H 156/111 03/16/19 23:26 111 H 156/111 03/16/19 21:43 109 H 146/89 03/16/19 21:33 111 H 152/101 03/16/19 21:23 115 H 153/98 03/16/19 21:13 117 H 147/91 03/16/19 21:03 117 H 142/92 03/16/19 20:53 117 H 161/97 03/16/19 20:43 116 H 161/95 03/16/19 20:33 113 H 161/98 03/16/19 20:18 106 H 170/101 03/16/19 19:55 106 H 170/101 03/16/19 19:50 98.7 F 106 H 20 100 03/16/19 19:25 109 H 176/120 03/16/19 18:55 110 H 181/112 03/16/19 18:25 108 H 183/96 03/16/19 17:57 102 H 170/108 03/16/19 17:55 107 H 173/108 03/16/19 17:25 97 H 176/84 03/16/19 16:54 90 145/83 03/16/19 16:25 100 H 180/97 03/16/19 15:55 98 H 174/106 03/16/19 15:25 96 H 158/103 03/16/19 14:55 93 H 168/110 03/16/19 14:24 93 H 159/99 03/16/19 14:14 99 H 146/95 03/16/19 13:55 100 H 180/108 03/16/19 13:33 95 H 175/95 03/16/19 13:25 96 H 177/115 03/16/19 12:55 95 H 155/106 03/16/19 12:46 95 H 100 03/16/19 12:43 94 03/16/19 12:39 92 H 100 03/16/19 12:37 97 H 88 03/16/19 12:32 97 H 100 03/16/19 12:30 98.0 F 03/16/19 12:27 97 H 100 03/16/19 12:25 95 H 183/107 03/16/19 12:22 95 H 100 03/16/19 12:17 97 H 100 03/16/19 12:12 90 100 03/16/19 12:07 106 H 82 L 03/16/19 11:55 89 158/95 03/16/19 11:24 92 H 139/89 03/16/19 10:55 89 144/89 03/16/19 10:32 91 H 100 03/16/19 10:27 93 H 100 03/16/19 10:25 90 137/82 03/16/19 10:22 91 H 100 03/16/19 10:17 95 H 100 03/16/19 10:12 94 H 100 03/16/19 10:07 95 H 100 03/16/19 10:02 93 H 100 03/16/19 09:57 91 H 100 Intake and Output 03/16/19 03/17/19 03/17/19 22:59 06:59 14:59 Intake Total 240 Output Total 250 2150 Balance -250 -1910 Intake: Oral 120 Intake, Free Water 120 Output: Urine 250 2150 Indwelling Catheter 250 1200 Void 950 Other: Total, Intake Amount 120 Total, Output Amount 250 600 # Voids Void 2 - Exam Breasts: Present: deferred Cardiovascular: Present: Regular rate Lungs: Present: Normal air movement Abdomen: Present: normal appearance, soft, distention (Slightly), tenderness (c/w POD#2) Uterus: Present: firm, fundal height below umbilicus Extremities: Present: edema Incision: Present: normal, dry, intact - Labs Labs: Abnormal lab results 03/16/19 03/16/19 Range/Units 12:34 17:39 Magnesium 4.40 H 4.00 H (1.7-2.3) mg/dL
[2019-03-17] MEDS: PRENATAL VITAMIN PO SCH (11:21)
[2019-03-17] MEDS: NORCO 5/325 PO PRN (18:06)
[2019-03-17] MEDS: IBUPROFEN PO PRN (20:08)
[2019-03-18] MEDS: NORCO 5/325 PO PRN ×3 (01:16→10:17)
[2019-03-18] MEDS: IBUPROFEN PO PRN (04:52)
[2019-03-18] MEDS: TYLENOL PO SCH ×2 (06:00→12:04)
[2019-03-18] MEDS: NORMODYNE PO SCH (08:10)
[2019-03-18] MEDS: PRENATAL VITAMIN PO SCH (10:17)
[2019-03-18 12:34] VITALS: BP 148/90
--- NOTE | 2019-03-18 12:52 | Discharge Summary ---
Providers - Providers Date of Admission: 03/14/19 04:49 Date of discharge: 03/18/19 Attending physician: TAWANA GRAJEDA Primary care physician: TAWANA GRAJEDA Hospitalization Reason for admission: induction of labor, other (preeclampsia) Delivery: Procedure: bilateral tubal ligation, primary low transverse Incision: normal, dry, intact Other procedures: none complications: none Discharge diagnosis: IUP at term delivered [place] baby: male Hospital course: Please see history and physical and notes for details. Patient was admitted for induction of labor and underwent section due to persistent elevated blood pressures in the severe preeclampsia range and remote from vaginal delivery. Procedure performed without complications. Her post operative course was complicated by persistent elevated blood pressure which was controlled with labetalol. She was discharged with continue labetalol 200 mg twice a day. She was afebrile throughout. Patient postoperative day 1 hematocrit was in an acceptable range. Patient had no orthostatic symptoms. Patient was tolerating regular diet and voiding without difficulty at time of discharge. Patient incision was healing well without evidence of infection. Patient is breast-feeding and had tubal ligation for her control. Condition at discharge: Good Disposition: DC-01 TO HOME OR SELFCARE - Discharge Diagnoses (1) delivery delivered Status: Acute (2) Pre-eclampsia Status: Acute Qualifiers: Trimester: third trimester Qualified Code(s): O14.93 - Unspecified pre-ec lampsia, third trimester (3) Sterilization Status: Acute Plan - Discharge Medications Prescriptions: Lidocain2.5%/Prilocai2.5% [Emla] 5 gm TP ONCE #1 tube Ferrous Sulfate [Feosol 325 MG tab] 325 mg PO BID #60 tablet Labetalol [Labetalol 200mg TAB] 200 mg PO BID #60 tablet Ibuprofen [Motrin 800 MG tab] 800 mg PO Q6H PRN #30 tablet PRN Reason: Pain oxyCODONE /ACETAMINOPHEN [Percocet 5/325 mg] 1 - 2 tab PO Q4H PRN #20 tablet PRN Reason: Pain, Moderate - Provider Discharge Summary Activity: routine, no sex for 6 weeks, no heavy lifting 4 weeks, no strenuous exercise Diet: routine Instructions: routine Additional instructions: [] Smoking cessation referral if applicable(refer to patient education folder for contact #) [] Refer to [facility] Booklet Call your doctor immediately for: * Fever > 100.5 * Heavy vaginal bleeding ( >1 pad per hour) * Severe persistent headache * Shortness of breath * Reddened, hot, painful area to leg or breast * Drainage or odor from incision. * Keep incision clean and dry at all times and follow doctor's instructions regarding bathing/showering - Follow up plan Follow up: TAWANA GRAJEDA MD [Primary Care Provider] - 7 Days Forms: [facility] Discharge Summary
== END 2019-03-18 12:20 | disposition home or self-care (01) | DRG 765 ==
LOC: TRG 04:48 → LD 04:49 → TRG 04:56 → APU 03-15 20:27 → LD 03-16 01:24 → OB 03-17 01:11
PROVIDERS: ADMIT Obstetrics & Gynecology; ATTEND Obstetrics & Gynecology
PROC: 10D00Z1 Extraction of Products of Conception, Low, Open Approach (ICD-10-PCS; principal; 2019-03-15)
PROC: 0UB70ZZ Excision of Bilateral Fallopian Tubes, Open Approach (ICD-10-PCS; 2019-03-15)
DX: O11.4 Pre-existing hypertension with pre-eclampsia, complicating childbirth (principal); O72.1 Other immediate postpartum hemorrhage; O99.62 Diseases of the digestive system complicating childbirth; K21.9 Gastro-esophageal reflux disease without esophagitis; O61.8 Other failed induction of labor; O99.214 Obesity complicating childbirth; E66.9 Obesity, unspecified; Z3A.36 36 weeks gestation of pregnancy; Z37.0 Single live birth; Z82.49 Family history of ischemic heart disease and other diseases of the circulatory system; Z83.3 Family history of diabetes mellitus
CPT/HCPCS: 36415; 59200; 81001; 82565; 83615; 83735; 84450; 84460; 84550; 85014; 85018; 85025; 85049; 86850; 86900; 86901; 88302; G0378; J0360; J0690; J0702; J1885; J2270; J2405; J2590; J2765; J3010; J3475; J7120